=== PATIENT | male | born 1985 | race Caucasian/White ===

== ENCOUNTER 2019-01-24 23:08 | Emergency (ER) | payer SELFPAY ==
[2019-01-25] MEDS ORDERED: Amoxicillin/Clavulanate TAB* 875 MG PO ONE (00:05)
--- NOTE | 2019-01-25 00:08 | ED ---
Throat Pain/Nasal Congestion - HPI Summary HPI Summary: Patient complains of left-sided jaw pain 2 days. History of dental caries at rear molars. States pain radiates from jaw back to left ear. Denies fever, cough, sore throat, CP, nasal discharge, SOB, N/C/D, abdominal pain, change in urine, change in BM. Denies medical history. - History of Current Complaint Chief Complaint: EDDentalPain Time Seen by Provider: 01/24/19 23:44 Hx Obtained From: Patient Onset/Duration: Gradual Onset, Lasting Days Severity: Severe Associated Signs And Symptoms: Positive: Negative Cough: None - Allergies/Home Medications Allergies/Adverse Reactions: Allergies Allergy/AdvReac Type Severity Reaction Status Date / Time No Known Allergies Allergy Verified 01/24/19 23:11 PMH/Surg Hx/FS Hx/Imm Hx Endocrine/Hematology History: Denies: Hx Anticoagulant Therapy Cardiovascular History: Denies: Hx Pacemaker/ICD History: Denies: Hx Dialysis Sensory History: Denies: Hx Eye Prosthesis Opthamlomology History: Denies: Hx Legally Blind EENT History: Denies: Hx Deafness Neurological History: Denies: Hx Dementia - Surgical History Surgery Procedure, Year, and Place: LEFT KNEE ARTHROSCOPY AGE 15 - Immunization History Immunizations Up to Date: Yes Infectious Disease History: No Infectious Disease History: Denies: Traveled Outside the [place] in Last 30 Days - Family History Known Family History: Positive: None, Hypertension, Diabetes - Social History Alcohol Use: Rare Hx Substance Use: No Substance Use Type: Reports: None Hx Tobacco Use: No Smoking Status (MU): Light Every Day Tobacco Smoker Type: Cigarettes Amount Used/How Often: 1/4 PPD Review of Systems Constitutional: Negative Eyes: Negative Positive: Dental Pain Cardiovascular: Negative Respiratory: Negative Gastrointestinal: Negative Genitourinary: Negative Musculoskeletal: Negative Skin: Negative Neurological: Negative Psychological: Normal All Other Systems Reviewed And Are Negative: Yes Physical Exam Triage Information Reviewed: Yes Vital Signs On Initial Exam: Initial Vitals Temp Pulse Resp BP Pulse Ox 99.0 F 86 15 141/89 95 01/24/19 23:10 01/24/19 23:10 01/24/19 23:10 01/24/19 23:10 01/24/19 23:10 Vital Signs Reviewed: Yes Appearance: Positive: Well-Appearing Skin: Positive: Warm Head/Face: Positive: Normal Head/Face Inspection Eyes: Positive: Normal ENT: Positive: Normal ENT inspection Dental: Positive: Gross Decay/Caries @, Dental Fracture @. Negative: Abscess @ , Bleeding Neck: Positive: Supple Respiratory/Lung Sounds: Positive: Clear to Auscultation Cardiovascular: Positive: Normal Abdomen Description: Positive: Nontender Musculoskeletal: Positive: Normal Neurological: Positive: Normal Psychiatric: Positive: Normal AVPU Assessment: Alert - Band[place] Coma Scale Best Eye Response: 4 - Spontaneous Best Motor Response: 6 - Obeys Commands Best Verbal Response: 5 - Oriented Coma Scale Total: 15 Diagnostics - Vital Signs Vital Signs Temp Pulse Resp BP Pulse Ox 01/24/19 23:50 81 96 01/24/19 23:49 88 134/89 95 01/24/19 23:10 99.0 F 86 15 141/89 95 - Laboratory Lab Statement: Any lab studies that have been ordered have been reviewed, and results considered in the medical decision making process. EENT Course/Dx - Course Course Of Treatment: Patient complains of left-sided jaw pain 2 days. History of dental caries at rear molars. States pain radiates from jaw back to left ear. Denies fever, cough, sore throat, CP, nasal discharge, SOB, N/C/D, abdominal pain, change in urine, change in BM. Denies medical history. Vital signs within normal limits. Physical exam unremarkable. Patient started on Augmentin. Rx for hydrocodone. Follow-up with dentist. - Diagnoses Provider Diagnoses: Jaw pain Discharge - Sign-Out/Discharge Documenting (check all that apply): Patient Departure Patient Received Moderate/Deep Sedation with Procedure: No - Discharge Plan Condition: Stable Disposition: HOME Prescriptions: Amoxicillin/Clavulanate TAB* [Augmentin TAB 875*] 875 mg PO BID #20 tab Ondansetron ODT TAB* [Zofran 4 MG Odt TAB*] 4 mg PO Q8H PRN 4 Days #14 tab.odt PRN Reason: Nausea Patient Education Materials: Temporomandibular Disorder (ED) Referrals: Non Staff,Doctor [Primary Care Provider] - Additional Instructions: Take antibiotics as directed. Alternate ibuprofen 600 mg with Tylenol 650 mg every 3 hours during the day for pain. Take hydrocodone at night for pain. Follow-up with your dentist as soon as possible for further evaluation. Return to the ED for any new or worsening symptoms. - Billing Disposition and Condition Condition: STABLE Disposition: Home - Attestation Statements Provider Attestation: the patient was seen by the midlevel provider, it was determined by them that it was not necessary for me to see the patient, I was available for consult during the patient's visit in the ED. I did not establish and patient-physician relationship. The chart however has been reviewed and I am signing in an administrative capacity.
[2019-01-25] MEDS ORDERED: Ibuprofen TAB* 600 MG PO ONE (00:19)
[2019-01-25 00:58] VITALS: BP 118/84
== END 2019-01-25 00:56 | disposition home or self-care (01) ==
LOC: ED 23:08
DX: R68.84 Jaw pain (principal); K03.81 Cracked tooth; K02.9 Dental caries, unspecified; F17.210 Nicotine dependence, cigarettes, uncomplicated
CPT/HCPCS: 99281; 99282; A9270-GY

== ENCOUNTER 2019-04-12 23:02 | Emergency (ER) | payer SELFPAY ==
[2019-04-12] MEDS ORDERED: Lidocaine 2% VISCOUS* 15 ML UDC PO ONE (23:22)
[2019-04-12] MEDS ORDERED: Acetaminophen TAB* 325 MG PO ONE (23:29)
[2019-04-12] MEDS ORDERED: Ciproflox/Dexameth OTIC.SUSP* 7.5 ML BTL RIGHT EAR ONE (23:56)
[2019-04-13 00:06] LABS: Rapid Strep Molecular Negative (Negative)
[2019-04-13] MEDS ORDERED: Amoxicillin/Clavulanate TAB* 875 MG PO ONE (00:13)
[2019-04-13] MEDS ORDERED: predniSONE TAB* 20 MG PO ONE (00:13)
--- NOTE | 2019-04-13 00:52 | ED ---
Throat Pain/Nasal Congestion - HPI Summary HPI Summary: Patient complains of right ear pain and purulent drainage 3 days, and sore throat and difficulty swallowing starting today with associated headache. Denies fever, cough, nasal congestion, CP, SOB, N/V/V abdominal pain, change in urine, change in BM. Medical history is none. - History of Current Complaint Chief Complaint: EDEarPain Time Seen by Provider: 04/12/19 23:19 Hx Obtained From: Patient Onset/Duration: Gradual Onset, Lasting Days Severity: Moderate Associated Signs And Symptoms: Positive: Negative Cough: None - Allergies/Home Medications Allergies/Adverse Reactions: Allergies Allergy/AdvReac Type Severity Reaction Status Date / Time No Known Allergies Allergy Verified 01/24/19 23:11 PMH/Surg Hx/FS Hx/Imm Hx Endocrine/Hematology History: Denies: Hx Anticoagulant Therapy Cardiovascular History: Denies: Hx Pacemaker/ICD History: Denies: Hx Dialysis Sensory History: Denies: Hx Eye Prosthesis, Hx Legally Blind, Hx Deafness Opthamlomology History: Denies: Hx Eye Prosthesis, Hx Legally Blind EENT History: Denies: Hx Deafness Neurological History: Denies: Hx Dementia - Surgical History Surgery Procedure, Year, and Place: LEFT KNEE ARTHROSCOPY AGE 15 - Immunization History Immunizations Up to Date: Yes Infectious Disease History: No Infectious Disease History: Denies: Traveled Outside the [place] in Last 30 Days - Family History Known Family History: Positive: None, Hypertension, Diabetes - Social History Alcohol Use: Rare Hx Substance Use: No Substance Use Type: Reports: None Hx Tobacco Use: No Smoking Status (MU): Light Every Day Tobacco Smoker Type: Cigarettes Amount Used/How Often: 1/4 PPD Review of Systems Constitutional: Negative Eyes: Negative Positive: Sore Throat, Ear Ache Cardiovascular: Negative Respiratory: Negative Gastrointestinal: Negative Genitourinary: Negative Musculoskeletal: Negative Skin: Negative Neurological: Negative Psychological: Normal All Other Systems Reviewed And Are Negative: Yes Physical Exam Triage Information Reviewed: Yes Vital Signs On Initial Exam: Initial Vitals Temp Pulse Resp BP Pulse Ox 98.1 F 90 18 137/91 96 04/12/19 23:03 04/12/19 23:03 04/12/19 23:03 04/12/19 23:03 04/12/19 23:03 Vital Signs Reviewed: Yes Appearance: Positive: Well-Appearing Skin: Positive: Warm Head/Face: Positive: Normal Head/Face Inspection Eyes: Positive: Normal ENT: Positive: Pharyngeal erythema, TMs normal - Left TM normal. Right TM positive otitis externa., Tonsillar swelling, Uvula midline. Negative: Tonsillar exudate, Trismus, Muffled voice, Hoarse voice Neck: Positive: Supple Respiratory/Lung Sounds: Positive: Clear to Auscultation Cardiovascular: Positive: Normal Abdomen Description: Positive: Nontender Musculoskeletal: Positive: Normal Neurological: Positive: Normal Psychiatric: Positive: Normal AVPU Assessment: Alert - Kyra Coma Scale Best Eye Response: 4 - Spontaneous Best Motor Response: 6 - Obeys Commands Best Verbal Response: 5 - Oriented Coma Scale Total: 15 Procedures - Sedation Patient Received Moderate/Deep Sedation with Procedure: No Diagnostics - Vital Signs Vital Signs Temp Pulse Resp BP Pulse Ox 04/12/19 23:23 98.5 F 89 20 133/82 94 04/12/19 23:03 98.1 F 90 18 137/91 96 - Laboratory Lab Results: Lab Results 04/12/19 04/12/19 Range/Units 23:22 23:47 Monoscreen Negative (Negative) Group A Strep Rapid Negative (Negative) Lab Statement: Any lab studies that have been ordered have been reviewed, and results considered in the medical decision making process. EENT Course/Dx - Course Course Of Treatment: Patient complains of right ear pain and purulent drainage 3 days, and sore throat and difficulty swallowing starting today with associated headache. Denies fever, cough, nasal congestion, CP, SOB, N/V/V abdominal pain, change in urine, change in BM. Medical history is none. Vital signs within normal limits. Harmon negative strep negative. Ciprodex for otitis externa. Augmentin and lidocaine for pharyngitis. - Diagnoses Provider Diagnoses: Pharyngitis, Otitis externa Discharge ED - Sign-Out/Discharge Documenting (check all that apply): Patient Departure - Discharge Plan Condition: Stable Disposition: HOME Prescriptions: Amoxicillin/Clavulanate TAB* [Augmentin TAB 875*] 875 mg PO BID #20 tab Lidocaine 2% VISCOUS* [Xylocaine 2% Viscous*] 15 ml SWISH SPIT Q6H PRN #1 btl PRN Reason: Pain - Moderate Patient Education Materials: Pharyngitis (ED), Otitis Externa (ED) Referrals: No Primary Care Phys,NOPCP [Primary Care Provider] - Additional Instructions: Used lidocaine as directed for sore throat pain if necessary. Take antibiotics as directed for sore throat. Place four drops of ear solution in right ear twice a day for 7 days. Return to the ED for any worsening symptoms. - Billing Disposition and Condition Condition: STABLE Disposition: Home
[2019-04-13 01:05] VITALS: BP 129/89
== END 2019-04-13 01:06 | disposition home or self-care (01) ==
LOC: ED 23:02
DX: J02.9 Acute pharyngitis, unspecified (principal); H60.91 Unspecified otitis externa, right ear; F17.210 Nicotine dependence, cigarettes, uncomplicated
CPT/HCPCS: 36415; 86308; 87651; 99282; A9270-GY

== ENCOUNTER 2019-04-29 21:20 | Emergency (ER) | payer SELFPAY ==
[2019-04-29 21:28] VITALS: BP 146/97
--- NOTE | 2019-04-29 23:02 | ED ---
Throat Pain/Nasal Congestion - HPI Summary HPI Summary: Patient complains of dental pain 1 week. Evaluated yesterday at [place] ED, prescribed ibuprofen and clindamycin. Patient states ibuprofen is not controlling pain. States he has appointment with dentist in 3 weeks. Denies any other symptoms, pain or injury. Medical history is none. - History of Current Complaint Chief Complaint: EDDentalPain Time Seen by Provider: 04/29/19 22:43 Hx Obtained From: Patient Onset/Duration: Gradual Onset, Lasting Days Severity: Severe Associated Signs And Symptoms: Positive: Negative Cough: None - Allergies/Home Medications Allergies/Adverse Reactions: Allergies Allergy/AdvReac Type Severity Reaction Status Date / Time No Known Allergies Allergy Verified 04/29/19 21:28 PMH/Surg Hx/FS Hx/Imm Hx Endocrine/Hematology History: Denies: Hx Anticoagulant Therapy Cardiovascular History: Denies: Hx Pacemaker/ICD History: Denies: Hx Dialysis Sensory History: Denies: Hx Eye Prosthesis, Hx Legally Blind, Hx Deafness Opthamlomology History: Denies: Hx Eye Prosthesis, Hx Legally Blind Neurological History: Denies: Hx Dementia - Surgical History Surgery Procedure, Year, and Place: LEFT KNEE ARTHROSCOPY AGE 15 - Immunization History Immunizations Up to Date: Yes Infectious Disease History: No Infectious Disease History: Denies: Traveled Outside the [place] in Last 30 Days - Family History Known Family History: Positive: None, Hypertension, Diabetes - Social History Alcohol Use: Rare Hx Substance Use: No Substance Use Type: Reports: None Hx Tobacco Use: No Smoking Status (MU): Heavy Every Day Tobacco Smoker Type: Cigarettes Amount Used/How Often: 1/4 PPD Review of Systems Constitutional: Negative Eyes: Negative Positive: Dental Pain Cardiovascular: Negative Respiratory: Negative Gastrointestinal: Negative Genitourinary: Negative Musculoskeletal: Negative Skin: Negative Neurological: Negative Psychological: Normal All Other Systems Reviewed And Are Negative: Yes Physical Exam - Summary Physical Exam Summary: No lesions, abscess or purulent drainage noted. Multiple dental caries. Triage Information Reviewed: Yes Vital Signs On Initial Exam: Initial Vitals Temp Pulse Resp BP Pulse Ox 97.6 F 82 16 146/97 97 04/29/19 21:25 04/29/19 21:25 04/29/19 21:25 04/29/19 21:25 04/29/19 21:25 Vital Signs Reviewed: Yes Appearance: Positive: Well-Appearing Skin: Positive: Warm Head/Face: Positive: Normal Head/Face Inspection Eyes: Positive: Normal ENT: Positive: Normal ENT inspection Dental: Positive: Gross Decay/Caries @. Negative: Abscess @, Cellulitis @, Bleeding Neck: Positive: Supple Respiratory/Lung Sounds: Positive: Clear to Auscultation Cardiovascular: Positive: Normal Abdomen Description: Positive: Nontender Musculoskeletal: Positive: Normal Neurological: Positive: Normal Psychiatric: Positive: Normal AVPU Assessment: Alert - [place]man Coma Scale Best Eye Response: 4 - Spontaneous Best Motor Response: 6 - Obeys Commands Best Verbal Response: 5 - Oriented Coma Scale Total: 15 Procedures - Sedation Patient Received Moderate/Deep Sedation with Procedure: No Diagnostics - Vital Signs Vital Signs Temp Pulse Resp BP Pulse Ox 04/29/19 21:25 97.6 F 82 16 146/97 97 - Laboratory Lab Statement: Any lab studies that have been ordered have been reviewed, and results considered in the medical decision making process. EENT Course/Dx - Course Course Of Treatment: Patient complains of dental pain 1 week. Evaluated yesterday at [place] ED, prescribed ibuprofen and clindamycin. Patient states ibuprofen is not controlling pain. States he has appointment with dentist in 3 weeks. Denies any other symptoms, pain or injury. Medical history is none. Vital signs within normal limits. Patient has been given Rx for opiates on prior visit for dental pain. Rx for viscous lidocaine only at this time. - Diagnoses Provider Diagnoses: Pain, dental Discharge ED - Sign-Out/Discharge Documenting (check all that apply): Patient Departure - Discharge Plan Condition: Stable Disposition: HOME Prescriptions: Lidocaine 2% VISCOUS* [Xylocaine 2% Viscous*] 15 ml SWISH SPIT Q6H PRN #1 btl PRN Reason: Pain - Severe Patient Education Materials: Toothache (ED) Referrals: Marcelo VALE,Eze Jara [Primary Care Provider] - Additional Instructions: Continue to take antibiotics. Follow-up with your dentist as soon as possible. - Billing Disposition and Condition Condition: STABLE Disposition: Home
== END 2019-04-29 23:12 | disposition home or self-care (01) ==
LOC: ED 21:20
DX: K08.89 Other specified disorders of teeth and supporting structures (principal); F17.210 Nicotine dependence, cigarettes, uncomplicated
CPT/HCPCS: 99281